=== PATIENT | male | born 1965 | race Caucasian/White ===

== ENCOUNTER 2017-01-12 14:42 | Outpatient (RCR) | payer BC ==
[~2017-01-12 14:42] MED LIST: ASPIRIN 81M81 MG/TA2 PO; BENICAR HCT 12.1 TAB PO; CRESTOR40 MG PO; LIPOFEN150 MG PO; TOPROL XL 25MG25 MG PO
[2017-01-14] MEDS ORDERED: CORDARONE200 MG/TAB PO (16:49)
[2017-01-14] MEDS ORDERED: PROTONIX 40MG T40 MG PO (16:49)
[2017-01-14] MEDS ORDERED: COUMADIN4 MG PO (16:50)
[2017-01-14] MEDS ORDERED: IRON325 MG PO (17:03)
[2017-02-02] MEDS ORDERED: COUMADIN 2MG2 MG/TAB PO (12:09)
[2017-02-02] MEDS ORDERED: FENTANYL 100MCG TD (12:11)
[2017-02-02] MEDS ORDERED: ROXANOL 20MG20 MG/ML SL (12:12)
[2017-02-20] MEDS ORDERED: ACTIQ PO (12:21)
== END 2017-04-12 | disposition home or self-care (01) ==
LOC: COL.CR
DX: Z48.812 Encounter for surgical aftercare following surgery on the circulatory system (principal); Z95.2 Presence of prosthetic heart valve

== ENCOUNTER 2017-01-14 16:19 | Emergency (ER) | payer BC ==
[~2017-01-14] VITALS: Ht 188 cm; Wt 88.6 kg
[2017-01-14] MEDS ORDERED: CORDARONE200 MG/TAB PO (16:49)
[2017-01-14] MEDS ORDERED: PROTONIX 40MG T40 MG PO (16:49)
[2017-01-14] MEDS ORDERED: COUMADIN4 MG PO (16:50)
[2017-01-14] MEDS ORDERED: IRON325 MG PO (17:03)
[2017-01-14 17:20] LABS: BASO % 0.3 % (0.0-2.0); EOS # 0.4 (0.0-0.7); EOS % 2.4 % (0-4.0); GRAN # 12.4 (1.4-6.5); LYMPH # 1.7 (1.2-3.4); LYMPH % 10.9 % (20.0-51.0); MEAN CELL VOLUME 95 fl (80.0-100.0); MEAN CORPUSCULAR HGB CONC 31 g/dl (33.0-37.0); MEAN PLATELET VOLUME 9.2 fl (7.4-10.4); MONO # 1.1 (0.1-0.6); MONO % 6.7 % (1.7-9.3); PLATELET COUNT 405 K/mm3 (130-400); WHITE BLOOD COUNT 15.8 K/mm3 (4.8-10.8)
[2017-01-14 17:21] LABS: HEMOGLOBIN 6.5 g/dl (13.5-18.0); MEAN CORPUSCULAR HEMOGLOBIN 30 pg (27.0-31.0)
[2017-01-14 17:22] LABS: HEMATOCRIT 20.8 % (42.0-52.0)
[2017-01-14 17:24] LABS: ADJUSTED CALCIUM 9.4 mg/dL (8.4-10.2); BILIRUBIN,TOTAL 0.7 mg/dL (0.0-1.0); CALCIUM 9.4 mg/dL (8.4-10.2); CREATININE, serum 1.55 mg/dL (0.66-1.25); POTASSIUM 3.6 mmol/L (3.4-5.0); TOTAL PROTEIN 7.9 gm/dL (6.4-8.2)
[2017-01-14 17:25] LABS: PARTIAL THROMBOPLASTIN TIME 60.9 SECONDS (26.0-37.0); PROTHROMBIN TIME 57.7 SECONDS (9.7-12.8)
[2017-01-14 18:10] LABS: TROPONIN-I 0.014 ng/mL (0.000-0.034)
[2017-01-14 19:11] VITALS: BP 126/63; PULSE 83; TEMP 97
[2017-01-14 19:26] VITALS: BP 135/70; PULSE 85; TEMP 99.1
[2017-01-14 19:41] VITALS: BP 131/67; PULSE 88; TEMP 99.1
[2017-01-14 20:16] VITALS: BP 132/66; PULSE 84; TEMP 99.5
== END 2017-01-14 20:25 | disposition short-term general hospital (02) ==
LOC: COL.ER 16:19 → MEDICAL 18:04 → COL.ER 20:25
PROVIDERS: Emergency Medicine
DX: K92.2 Gastrointestinal hemorrhage, unspecified (principal); D64.9 Anemia, unspecified; R19.5 Other fecal abnormalities; R91.1 Solitary pulmonary nodule; J90 Pleural effusion, not elsewhere classified; I31.3 Pericardial effusion (noninflammatory); I25.10 Atherosclerotic heart disease of native coronary artery without angina pectoris; I25.2 Old myocardial infarction; Z79.01 Long term (current) use of anticoagulants; Z95.2 Presence of prosthetic heart valve; Z85.47 Personal history of malignant neoplasm of testis; Z87.891 Personal history of nicotine dependence
CPT/HCPCS: C9113; J1170; J7040; P9016

== ENCOUNTER → 2017-01-29 | Outpatient (CLI) | payer BC ==
[~2017-01-29] MED LIST changes: +ACTIQ PO; +CORDARONE200 MG/TAB PO; +COUMADIN 2MG2 MG/TAB PO; +COUMADIN4 MG PO; +FENTANYL 100MCG TD; +IRON325 MG PO; +PROTONIX 40MG T40 MG PO; +ROXANOL 20MG20 MG/ML SL
== END ==
LOC: COL.RAD 12:20
DX: C79.51 Secondary malignant neoplasm of bone (principal)

== ENCOUNTER 2017-02-02 11:17 | Emergency (ER) | payer BC ==
[~2017-02-02] VITALS: Ht 188 cm; Wt 84.1 kg
[~2017-02-02 11:17] MED LIST changes: -ACTIQ PO; -COUMADIN 2MG2 MG/TAB PO; -FENTANYL 100MCG TD; -ROXANOL 20MG20 MG/ML SL
[2017-02-02] MEDS ORDERED: COUMADIN 2MG2 MG/TAB PO (12:09)
[2017-02-02] MEDS ORDERED: FENTANYL 100MCG TD (12:11)
[2017-02-02] MEDS ORDERED: ROXANOL 20MG20 MG/ML SL (12:12)
[2017-02-02 12:24] LABS: BASO % 0.2 % (0.0-2.0); EOS # 0.2 (0.0-0.7); EOS % 1.1 % (0-4.0); GRAN # 11.5 (1.4-6.5); GRAN % 75.5 % (42.2-75.2); LYMPH % 12.9 % (20.0-51.0); MEAN CELL VOLUME 90 fl (80.0-100.0); MEAN CORPUSCULAR HGB CONC 31 g/dl (33.0-37.0); MEAN PLATELET VOLUME 9.4 fl (7.4-10.4); MONO # 1.4 (0.1-0.6); MONO % 9.2 % (1.7-9.3); PLATELET COUNT 401 K/mm3 (130-400); RED BLOOD COUNT 2.26 M/mm3 (4.20-5.60); REDCELL DISTRIBUTION WIDTH-CV 14.3 % (11.5-14.5); WHITE BLOOD COUNT 15.2 K/mm3 (4.8-10.8)
[2017-02-02 12:31] LABS: HEMATOCRIT 20.4 % (42.0-52.0); HEMOGLOBIN 6.4 g/dl (13.5-18.0); MEAN CORPUSCULAR HEMOGLOBIN 28 pg (27.0-31.0)
[2017-02-02 12:34] LABS: ADJUSTED CALCIUM 9.8 mg/dL (8.4-10.2); ALBUMIN 3.9 gm/dL (3.5-5.0); BILIRUBIN,TOTAL 0.7 mg/dL (0.0-1.0); CALCIUM 9.7 mg/dL (8.4-10.2); CREATININE, serum 1.36 mg/dL (0.66-1.25); POTASSIUM 4.1 mmol/L (3.4-5.0); TOTAL PROTEIN 7.6 gm/dL (6.4-8.2)
[2017-02-02 12:46] LABS: INR 1.7 (0.8-3.0); PROTHROMBIN TIME 18.8 SECONDS (9.7-12.8)
[2017-02-02 12:48] LABS: PARTIAL THROMBOPLASTIN TIME 32.4 SECONDS (26.0-37.0)
[2017-02-02 15:11] VITALS: BP 138/68; PULSE 98; TEMP 98.4
== END 2017-02-02 17:35 | disposition short-term general hospital (02) ==
LOC: COL.ER 11:17
PROVIDERS: Emergency Medicine
DX: M25.552 Pain in left hip (principal); D64.9 Anemia, unspecified; C62.90 Malignant neoplasm of unspecified testis, unspecified whether descended or undescended; C79.51 Secondary malignant neoplasm of bone; I10 Essential (primary) hypertension; Z95.2 Presence of prosthetic heart valve; I25.10 Atherosclerotic heart disease of native coronary artery without angina pectoris; Z79.01 Long term (current) use of anticoagulants
CPT/HCPCS: C9113; J1170; J2405; J3010; J7030; P9016

== ENCOUNTER 2017-02-20 11:00 | Outpatient (RCR) | payer BC ==
[2017-02-20] VITALS (9 sets, daily range): BP systolic 98–137; BP diastolic 65–83; PULSE 80–97; TEMP 96.9–99
[~2017-02-20] VITALS: Ht 188 cm; Wt 80.0 kg
[~2017-02-20 11:00] MED LIST changes: +COUMADIN 2MG2 MG/TAB PO; +FENTANYL 100MCG TD; +ROXANOL 20MG20 MG/ML SL
[2017-02-20] MEDS ORDERED: ACTIQ PO (12:21)
== END 2017-02-20 18:00 | disposition home or self-care (01) ==
LOC: EUO 11:00 → EDSTATUS 11:00 → EUO 18:00
DX: C62.11 Malignant neoplasm of descended right testis (principal)
CPT/HCPCS: J7050; P9016